=== PATIENT | male | born 2000 | race Caucasian/White ===

== ENCOUNTER 2020-12-21 17:27 | Emergency (ER) | payer SELFPAY ==
[~2020-12-21] VITALS: Ht 162.6 cm; Wt 88.6 kg
[2020-12-21 18:12] VITALS: BP 142/82; PULSE 86; TEMP 98.9
[2020-12-21] MEDS ORDERED: OMEGA-3 1000 MG1 CAP PO (18:17)
[2020-12-21] MEDS ORDERED: ASHWAGANDHA PO (18:18)
[2020-12-21] MEDS ORDERED: PHARMASSURE ZIN50 MG PO (18:19)
[2020-12-21] MEDS ORDERED: HONEY BEARS MU1 EACH PO (18:20)
== END 2020-12-21 20:46 | disposition home or self-care (01) ==
LOC: COL.ER 17:27
DX: R51.9 Headache, unspecified (principal)